=== PATIENT | male | born 1975 | race Caucasian/White ===

== ENCOUNTER 2020-08-26 11:55 | Emergency (ER) | payer MEDICAID, SELFPAY ==
[2020-08-26 12:06] VITALS: BP 108/71; PULSE 86; RESP 14; TEMP 36.7; O2SAT 96; BMI 33.6
--- NOTE | 2020-08-26 12:24 | ED.BACK ---
HPI - Back Pain/Injury General Chief Complaint: Back Pain/Injury Stated Complaint: low back pain Time Seen by Provider: 08/26/20 12:23 History of Present Illness HPI Narrative: Patient woke 3 days ago with right-sided low back pain radiating with tingling to his right foot, the tingling is only when he bends forward, pain is worse with bending, he is not sure if there was any specific injury but he did do some lifting at work the day before There is no weakness no incontinence, no fever no other complaints Related Data Previous Rx's Medication Instructions Recorded cyclobenzaprine 5 mg PO TID PRN #14 tab 08/26/20 naproxen [Naprosyn] 500 mg PO BID PRN #14 tab 08/26/20 prednisone 60 mg PO DAILY 3 Days #9 tab 08/26/20 Allergies Allergy/AdvReac Type Severity Reaction Status Date / Time No Known Allergies Allergy Unverified 07/14/20 16:26 Review of Systems Review of Systems: There is radiation of the pain to the right foot, there is no numbness no weakness no paresthesias no burning with urination no change of bowel or bladder no incontinence, no fever no chills no chest pain no abdominal pain no skin rash PMFSH Past Medical History Source: nursing notes reviewed Medical History (Updated 08/26/20 @ 12:44 by GENO So) No known health problems Social History Social History Advance Directives: No Advance Directives Information Provided: No Physical Exam Vital Signs: Vital Signs: Vital Signs Temp Pulse Resp BP Pulse Ox 08/26/20 12:06 98.0 F 86 14 108/71 96 Body Mass Index 33.6 Patient is well-appearing in no distress, A&O x3 The neck is supple with full range of motion Respiratory there is no respiratory distress Abdomen is soft and nontender The back has right lower lumbar paraspinal tenderness, there is no midline tenderness there is no CVA tenderness, the skin of the back is normal in appearance with no redness or warmth or wound The skin is normal no rashes Neuro is motor is 5/5 x4, the gait is normal, sensation is intact, patient is A&O x3 Extremities is full range of motion x4 Discharge Plan Discharge Clinical Impression: Lumbar radiculopathy Patient Disposition: Home, Self-Care Additional Instructions: Follow as needed with primary care doctor We are trying prednisone which is an anti-inflammatory which may help with the pain shooting into your leg Return any time if worse Prescriptions: New prednisone 20 mg tablet 60 mg PO DAILY 3 Days Qty: 9 RF: 0 cyclobenzaprine 5 mg tablet 5 mg PO TID PRN (Reason: muscle spasm) Qty: 14 RF: 0 naproxen [Naprosyn] 500 mg tablet 500 mg PO BID PRN (Reason: pain) Qty: 14 RF: 0
[2020-08-26] MEDS: predniSONE 20 MG TABLET 60 MG PO (12:59)
[2020-08-26] MEDS: Ketorolac Tromethamine 30 MG/ML VIAL IM (13:00)
== END 2020-08-26 13:06 | disposition home or self-care (01) ==
PROVIDERS: Emergency Provider Emergency Medicine
DX: M54.16 Radiculopathy, lumbar region (principal); M54.5 Low back pain; Z79.899 Other long term (current) drug therapy
CPT/HCPCS: 96372; 99283; 99284; J1885

== ENCOUNTER 2023-09-02 10:12 | Outpatient (REF) | payer MEDICAID, SELFPAY ==
[2023-09-02 11:51] LABS: Alanine Aminotransferase 65 U/L (0-40); Albumin Level 4.4 g/dL (3.5-5.0); Alkaline Phosphatase 91 U/L (39-117); Anion Gap 10 (12-20); Aspartate Amino Transferase 50 U/L (5-37); Bilirubin Total 0.6 mg/dL (0.0-1.0); Blood Urea Nitrogen 12 mg/dL (9-16); Calcium 9.4 mg/dL (8.4-10.2); Carbon Dioxide 28 mmol/L (22-29); Chloride 106 mmol/L (96-108); Cholesterol 176 mg/dL (<200); Estimated Glomerular Filt Rate > 60; Glucose Random 101 mg/dL (60-115); HDL Cholesterol 56 mg/dL (>40); LDL Cholesterol Calculated 97 mg/dL (<100); Potassium 4.4 mmol/L (3.3-5.1); Sodium 140 mmol/L (135-145); Total Protein 7.9 g/dL (6.5-8.0); Triglycerides 116 mg/dL (<150)
[2023-09-02 15:45] LABS: CT PCR NOT DETECTED (Not Detect.); NG PCR NOT DETECTED (Not Detect.)
[2023-09-03 13:03] LABS: RPR Rapid Plasma Reagin NON-REACTIVE (NON-REACTIVE)
[2023-09-05 16:12] LABS: HIV RNA PCR Qn Copies Not Detected Copies/mL; HIV RNA PCR Qn Log Copies Not Detected Log cps/mL
== END 2023-09-02 10:13 | disposition home or self-care (01) ==
LOC: HO.HHCL 10:12
PROVIDERS: Visit Provider Nurse Practitioner Family
DX: Z00.00 Encounter for general adult medical examination without abnormal findings (principal); Z11.4 Encounter for screening for human immunodeficiency virus [HIV]; Z11.3 Encounter for screening for infections with a predominantly sexual mode of transmission; Z71.3 Dietary counseling and surveillance
CPT/HCPCS: 0353U; 36415; 80053; 80061; 86592; 87536; 87900

== ENCOUNTER 2023-09-10 12:56 | Outpatient (AMB) | payer MEDICAID, SELFPAY ==
--- NOTE | 2023-09-10 12:57 | A.OFFVIS_ITS ---
Intake Vital Signs 09/10/23 12:59 Height 5 ft 4 in Weight 202 lb BMI 34.7 BP 127/83 Blood Pressure Location Rt brachial Position Sitting Pulse 92 Intake Visit Reasons: 1.5cm mass~ Lt upper back Intake Note: Patient referred by Hillary Erwin CNP for lump on back. Has been present for 2yrs. C/o increasing in size. Noticed discomfort when rubs with seat bealt while driving. Bothersome when leaning against it. 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 He has had this at least 2 years time. His increasing in size, becoming more symptomatic. He wished to have it excised. Patient has no such lesions elsewhere. Chart was reviewed and patient evaluated. [facility] Medical History Depression Anxiety No known health problems Social History (Updated 09/10/23 @ 13:05 by RAPHAEL Johnson) Alcohol intake: current Alcohol intake frequency: a few times a week Alcohol type: hard liquor Patient Tobacco Use Status: Former Tobacco user Quit Date: 2013 Physical Exam Vital Signs: Last Vital Signs Pulse 92 09/10/23 12:59 BP 127/83 09/10/23 12:59 BMI result Body Mass Index 34.7 Back/Spine/Pelvis Other: Approximately 3 x 2 cm left upper back sebaceous cyst. No other gross pathology demonstrated. Office Procedures Excision Details: Risks, benefits, alternatives of excision of left upper back sebaceous cyst r eviewed with the patient and included but not limited to bleeding, infection, recurrence, numbness, pain, scarring, wound dehiscence, seroma formation and the patient wished to proceed. All questions were answered. Consent was signed. After appropriate positioning, patient under 1% lidocaine and Betadine prep and a transverse bi- elliptical incision was made around the sebaceous cyst measurin g approximately 3 x 2 cm. This uneventfully excised and sent to pathology. Wounds id, secured hemostasis, and closed using running subcuticular 3-0 Vicryl suture followed by Steri-Strips and sterile dressing. Patient tolerated procedure well. Procedure code (CPT) selection complete Office Meds lidocaine 1 %-epinephrine 1:100,000 injection solution Performing Provider: Luis Hunt MD [place] [facility] Administered by: Luis Hunt MD on 09/10/23 13:39 Dose Route Admin Location Dispensed Lot Number Expiration Date [facility] Epic [employer] Specialist 10 mL Infiltration 10 mL Assessment & Plan Assessment & Plan (1) Sebaceous cyst: Code(s): L72.3 - Sebaceous cyst Plan: Patient has been given local instructions including shower in 2 days, ice to the area p.r.n., no strenuous activities, and will see me as directed or p.r.n.. Orders: Orders AMB Excision Today L72.3 - Sebaceous cyst Coding Level of Care Code New Pt Level 5 (95488) Diagnoses Sebaceous cyst L72.3
[2023-09-10 12:59] VITALS: BP 127/83; PULSE 92; BMI 34.7
== END 2023-09-10 13:35 | disposition home or self-care (01) ==
PROVIDERS: PCP Nurse Practitioner Family; Referring Provider Nurse Practitioner Family; Visit Provider Surgery
DX: L72.0 Epidermal cyst (principal)
CPT/HCPCS: 11403; 99204

== ENCOUNTER 2023-09-10 12:56 | Outpatient (REF) | payer MEDICAID, SELFPAY | END 2023-09-10 12:57 | disposition home or self-care (01) | LOC: HO.LNP 12:56 | PROVIDERS: PCP Nurse Practitioner Family; Referring Provider Nurse Practitioner Family; Visit Provider Surgery | DX: L72.3 Sebaceous cyst (principal); Z79.899 Other long term (current) drug therapy | CPT/HCPCS: 11403; 88304; 99202 ==

== ENCOUNTER 2023-09-17 09:05 | Outpatient (AMB) | payer MEDICAID, SELFPAY ==
--- NOTE | 2023-09-17 09:07 | A.OFFVIS_ITS ---
Intake Vital Signs 09/17/23 09:13 Height 5 ft 4 in Weight 209 lb BMI 35.9 BP 132/84 Blood Pressure Location Rt brachial Position Sitting Pulse 85 Intake Visit Reasons: s/p exc Lt upper back Intake Note: Patient here s/p Lt upper back cyst exc. Reports incision healing well. Noticed mild itch yesterday. Denies pain, redness, oozing. 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 Pathology is benign. [facility] Medical History Depression Anxiety No known health problems Social History Alcohol intake: current Alcohol intake frequency: a few times a week Alcohol type: hard liquor Patient Tobacco Use Status: Former Tobacco user Quit Date: 2013 Physical Exam Vital Signs: Last Vital Signs Pulse 85 09/17/23 09:13 BP 132/84 09/17/23 09:13 BMI result Body Mass Index 35.9 Back/Spine/Pelvis Other: Back incision clean dry and intact healing well Assessment & Plan Assessment & Plan (1) Sebaceous cyst: Code(s): L72.3 - Sebaceous cyst Plan Patient has been given local instructions, and will follow-up p.r.n. Coding Level of Care Code Global (05943) Diagnoses Sebaceous cyst L72.3
[2023-09-17 09:13] VITALS: BP 132/84; PULSE 85; BMI 35.9
== END 2023-09-17 09:21 | disposition home or self-care (01) ==
PROVIDERS: PCP Nurse Practitioner Family; Visit Provider Surgery
DX: L72.3 Sebaceous cyst (principal)
CPT/HCPCS: 99024

== ENCOUNTER → 2023-09-17 09:05 | Outpatient (BNVA) | payer MEDICAID, SELFPAY | PROVIDERS: PCP Nurse Practitioner Family; Visit Provider Surgery ==

== ENCOUNTER 2023-10-08 09:24 | Outpatient (AMB) | payer MEDICAID, SELFPAY ==
[2023-10-08 09:27] VITALS: BP 115/76; PULSE 86; BMI 34.0
--- NOTE | 2023-10-08 09:27 | A.OFFVIS_ITS ---
Intake Vital Signs 10/08/23 09:27 Height 5 ft 4 in Weight 198 lb BMI 34.0 BP 115/76 Blood Pressure Location Lt brachial Position Sitting Pulse 86 Intake Visit Reasons: Colonoscopy Screening Intake Note: New consult for pre colonoscopy screening. Patient denies any GI issues. 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 He has a good appetite No known family history of GI cancer No nausea, vomiting, hematemesis, hematochezia abdominal pain fever or chills PFSH Medical History (Updated 10/08/23 @ 10:38 by April Osorio PA-C) Depression Anxiety No known health problems Surgical History (Updated 10/08/23 @ 09:35 by April Osorio PA-C) H/O cystoscopy Social History (Updated 10/08/23 @ 10:36 by April Osoiro PA-C) Household Members Other:: adult child Alcohol intake: current Alcohol intake frequency: a few times a week Alcohol type: hard liquor Patient Tobacco Use Status: Former Tobacco user Quit Date: 2013 Current occupational status: employed Current occupation: [employer] Review of Systems Const All systems reviewed & are unremarkable except as noted in HPI and below Card Denies chest pain, Denies dyspnea and Denies dyspnea on exertion Resp Denies dyspnea and Denies dyspnea on exertion GI Denies abdominal pain, Denies hematochezia, Denies change in bowel habits, Denies heartburn, Denies nausea and Denies vomiting Physical Exam Vital Signs: Last Vital Signs Pulse 86 10/08/23 09:27 BP 115/76 10/08/23 09:27 BMI result Body Mass Index 34.0 Const General: cooperative, healthy appearing, comfortable and no acute distress Orientation/consciousness: patient oriented x3 Limitations: no limitations Eyes Sclerae: sclerae normal Resp Effort & Inspection: normal respiratory effort and able to speak in complete sentences Auscultation: clear to auscultation bilaterally, no rales, no rhonchi and no wheezes Cardio Rate: regular rate Rhythm: regular rhythm Heart sounds: S1 normal heart sound present and S2 normal heart sound present GI Palpation (GI): Soft to palpation and nontender Auscultation: normal bowel sounds Skin General skin exam: no rashes or lesions noted Neuro General: patient oriented x3 Extrem General: Yes full ROM Psych Appearance: grossly normal and well kempt Mental Status: mental status grossly normal Speech and movement: Normal speech and movement present Affect: normal affect Attitude: cooperative Thought process: Normal thought process present Thought content: Normal thought content present Insight: Good insight present (Psych) Judgement: Good judgement present (Psych) Assessment & Plan Assessment & Plan (1) Encounter for screening colonoscopy: Comment: No GI or general complaints-reviewed procedure, rare risk need for escort Code(s): Z12.11 - Encounter for screening for malignant neoplasm of colon Plan: Index screening colonoscopy Plan index screening- MG prep Orders: Orders Colonoscopy - GI Use Only Today Z12.11 - Encounter for screening for malignant neoplasm of colon Medications: New bisacodyl (Dulcolax (bisacodyl)) Day before procedure, prep day Take 4 tablets by mouth upon awakening followed by large glass of water 20 mg (4 x 5 mg) PO ONCE 4 tabs 0RF colonoscopy prep 1 day Z12.11 - Encounter for screening for malignant neoplasm of colon polyethylene glycol 3350 (Miralax) Take as directed by mouth the day before your procedure. 238 grams PO ONCE 238 grams 0RF laxative effect 1 day Patient Instructions: Pleasant for healthy 48-year-old male referred for Index screening colonoscopy MiraLax Gatorade prep-reviewed literature given Encouraged to call with questions or concerns Coding Level of Care Code New Pt Level 3 (73562) Diagnoses Encounter for screening colonoscopy Z12.11 Time Spent (min) 30
== END 2023-10-08 09:58 | disposition home or self-care (01) ==
PROVIDERS: PCP Nurse Practitioner Family; Visit Provider Physician Assistant
DX: Z01.818 Encounter for other preprocedural examination (principal); Z12.11 Encounter for screening for malignant neoplasm of colon
CPT/HCPCS: 99202

== ENCOUNTER → 2023-10-08 09:24 | Outpatient (BNVA) | payer MEDICAID, SELFPAY | PROVIDERS: PCP Nurse Practitioner Family; Visit Provider Physician Assistant | DX: Z12.11 Encounter for screening for malignant neoplasm of colon (principal) | CPT/HCPCS: 99212 ==

== ENCOUNTER 2024-01-31 15:41 | Outpatient (REF) | payer MEDICAID, SELFPAY ==
[2024-01-31 17:54] LABS: Alanine Aminotransferase 55 U/L (0-40); Albumin Level 4.4 g/dL (3.5-5.0); Alkaline Phosphatase 95 U/L (39-117); Aspartate Amino Transferase 37 U/L (5-37); Bilirubin Direct 0.2 mg/dL (0.0-0.5); Bilirubin Total 0.6 mg/dL (0.0-1.0); Total Protein 8.2 g/dL (6.5-8.0)
[2024-02-04 16:03] LABS: HCV Log PCR <1.18 NOT DETECTED Log IU/mL (NOT DETECTED); HepC Viral Load <15 NOT DETECTED IU/mL (NOT DETECTED)
== END 2024-01-31 15:42 | disposition home or self-care (01) ==
LOC: HO.HHCL 15:41
PROVIDERS: Visit Provider Nurse Practitioner Family
DX: B18.2 Chronic viral hepatitis C (principal)
CPT/HCPCS: 36415; 80076; 87522

== ENCOUNTER 2024-03-02 08:41 | Day surgery (SDC) | payer OTHER, SELFPAY ==
--- NOTE | 2024-02-28 12:22 | HO.ANESPROP2 ---
Documented by User: Kim Abebe NP 02/28/24 12:22 HPI - Anesthesia Eval Consult details Narrative: 48yo M for Colonoscopy [facility] Active Problems Active Problems: All Active Problems Encounter for screening colonoscopy (Acute) Sebaceous cyst (Acute) Past Medical History Medical History (Updated 10/08/23 @ 10:38 by April Osorio PA-C) Depression Anxiety No known health problems Surgical History Surgical History (Updated 10/08/23 @ 09:35 by April Osorio PA-C) H/O cystoscopy Social History Social History (Updated 10/08/23 @ 10:36 by April Osorio PA-C) Household Members Other:: adult child Alcohol intake: current Alcohol intake frequency: a few times a week Alcohol type: hard liquor Patient Tobacco Use Status: Former Tobacco user Quit Date: 2013 Are you DNR?: No Advance Directives: No Advance Directives Information Provided: Yes Nutrition Risks: No Nutritional Risk Current occupational status: employed Current occupation: [employer] Allergies Allergy/AdvReac Type Severity Reaction Status Date / Time No Known Allergies Allergy Verified 10/08/23 09:27 Home Medications ?Medication ?Instructions ?Recorded ?Confirmed ?Last Taken ?Type amitriptyline 25 mg tablet 25 mg PO BEDTIME 09/10/23 Unknown History Assessment and Plan Assessment Anesthesia Assessment: Chart Reviewed Documented by User: Piper Cheng MD 03/02/24 09:46 [facility] Past Medical History Medical History (Updated 10/08/23 @ 10:38 by April Osorio PA-C) Depression Anxiety No known health problems Family History Family history of problems with anesthesia: No Surgical History Surgical History (Updated 10/08/23 @ 09:35 by April Osorio PA-C) H/O cystoscopy History of Problems with Anesthesia: No Social History Social History (Updated 10/08/23 @ 10:36 by April Osorio PA-C) Household Members Other:: adult child Alcohol intake: current Alcohol intake frequency: a few times a week Alcohol type: hard liquor Patient Tobacco Use Status: Former Tobacco user Quit Date: 2013 Are you DNR?: No Advance Directives: No Advance Directives Information Provided: Yes Nutrition Risks: No Nutritional Risk Current occupational status: employed Current occupation: [employer] Allergies Allergy/AdvReac Type Severity Reaction Status Date / Time No Known Allergies Allergy Verified 10/08/23 09:27 Home Medications ?Medication ?Instructions ?Recorded ?Confirmed ?Last Taken ?Type amitriptyline 25 mg tablet 25 mg PO BEDTIME 09/10/23 Unknown History Exam Airway Mallampati Class: II TM Dist: >3cm Neck ROM: Full Partial: Upper Heart: rrr Lungs: cta Assessment and Plan Assessment Anesthesia Assessment: Anesthesia Plan Discussed Final Anesthetic Review Family History of Problems with Anesthesia: No History of Problems with Anesthesia: No NPO: Yes ASA Class: II Final Preanesthetic Review: No Changes in Pt Med Stat, Meds/Allgs Chart Reviewed and Consent Obtained/Reviewed Patient Risk: Low Procedure Risk: Low Anesthetic Plan Anesthetic Plan: MAC: Disposition: Standard PACU
[2024-03-02 09:40] VITALS: BMI 34.0
[2024-03-02] MEDS: Lactated Ringers 1,000 ML 100 ML IVCONT (09:45)
--- NOTE | 2024-03-02 09:46 | MHC.SHP ---
Pre-Procedural Eval Section A - 24 Hr Update-Section A only Date of Service: 03/02/24 The patient is an INPATIENT: No The patient has been examined within 24 hours of the surgical procedure. The History & Physical has been completed within 30 days and I have reviewed it.: No Section B - Complete if H&P > 30 days Chief Complaint: Colon cancer screening Relevant Family History (Specify if Yes): No Relevant Social History: Tobacco Use (Former smoker) Present Medications: see Short Stay Collaborative assessment Medical History: Significant History (Depression Anxiety) History of Previous Operations: Relevant previous surgery/procedure and date(s) (History of cystoscopy) Allergies: Allergies Allergy/AdvReac Type Severity Reaction Status Date / Time No Known Allergies Allergy Verified 10/08/23 09:27 Review of Systems Sugical H&P ROS: Negative: Constitution, Cardiovascular, Respiratory and Gastrointestinal Exam Surgical H&P Exam: Normal: Heart, Normal: Lungs, Normal: Extremities and Normal: Abdomen Plan Diagnosis/Plan: Unchanged I have reviewed the history and physical and performed a pertinent physical examination on my patient. No changes have occurred unless specified. Time Spent With Patient Time: Total time managing care of this patient today ____ minutes.
[2024-03-02 09:50] VITALS: BP 123/81; PULSE 85; RESP 18; TEMP 36.9; O2SAT 97
--- NOTE | 2024-03-02 10:26 | HO.OPN-COLON ---
Colonoscopy Operative Note Operative Note Date of Service: 03/02/24 Narrative: COLONOSCOPY TILL CECUM WITH BIOPSIES AND SNARE POLYPECTOMY Pre-op diagnosis: Colon cancer screening (first colonoscopy). Post-op diagnosis:? Colon polyps, prominent ileocecal valve, diverticulosis, hemorrhoids Endoscopist:Mera Baeza MD Anesthesia:?MAC Consent: Indications for the procedure and potential complications of bleeding, perforation, reaction to medications and missed diagnosis were discussed with the patient and informed consent was obtained. Instrument: Olympus PCF H 190 L variable stiffness pediatric colonoscope Monitoring: Vital signs and clinical assessment, intermittent blood pressure monitoring, continuous EKG monitoring, Pulse oximetry and Carbon Dioxide monitoring were done throughout the procedure. Please see anesthesia flowsheet. Colon withdrawl time was 24 minutes. Procedure: The patient was placed in the left lateral decubitis position and pre-procedure medications were administered. After a digital rectal examination of the ano-rectum, the video colonoscope was inserted into the rectum and advanced through the colon to the cecum. The colonoscope was slowly withdrawn in a retrograde panoramic fashion and the colon mucosa was carefully examined including a retroflexed view of the rectum. Findings and interventions are described below. Procedure Difficulty: without difficulty Findings: Terminal Ileum: Not evaluated Cecum: Posterior lip of ICV valve appeared prominent with ? adenomatous change - multiple biopsies were obtained. (biopsies showed Active ileitis with mild activity). Ascending Colon: A 3-4 mm diminutive appearing polyps in the proximal AC - removed with a cold biopsy Transverse Colon: Normal Descending Colon: Moderate diverticulosis Sigmoid Colon: A 10 mm sessile polyp - removed with a cold snare. Moderate diverticulosis Rectum: Normal Ano-rectum: Moderate internal hemorrhoids Colon preparation: Good after some irrigation. [place] Bowel Preparation Scale Right colon; 2 Transverse colon: 2 Left colon; 2 (0 = Unprepared colon segment with mucosa not seen due to solid stool that cannot be cleared. 1 = Portion of mucosa of the colon segment seen, but other areas of the colon segment not well seen due to staining, residual stool and/or opaque liquid. 2 = Minor amount of residual staining, small fragments of stool and/or opaque liquid, but mucosa of colon segment seen well. 3 = Entire mucosa of colon segment seen well with no residual staining, small fragments of stool or opaque liquid) Impression and Post Procedure Diagnosis: Colonoscopy Findings: One small and one medium sized polyps were removed Moderate diverticulosis seen in the left colon Moderate hemorrhoids on retroflexed exam. Plan: I will send a letter with biopsy results Repeat Colonoscopy in 3 years if polyps are adenomatous and 10 year if polyps are hyperplastic. Above findings were reviewed with the patient and relevant handouts were given and the discharge area. BIOPSIES SHOWED: A. Colon, ascending, polypectomy: Tubular adenoma; negative for high-grade dysplasia. B. Ileocecal valve, biopsy: Active ileitis with mild activity (see comment). C. Colon, sigmoid, polypectomy: Tubular adenoma; negative for high-grade dysplasia. COMMENT (B): Neither chronic mucosal injury nor granulomas are seen. The differential diagnosis includes drug/medication effect (e.g. NSAID), infection and early idiopathic inflammatory bowel disease
[2024-03-02 11:09] VITALS: BP 104/71; PULSE 90; RESP 16; TEMP 36.1; O2SAT 94
[2024-03-02 11:24] VITALS: BP 116/76; PULSE 77; RESP 17; O2SAT 96
[2024-03-02 11:31] VITALS: BP 108/74; PULSE 68; RESP 16; TEMP 36.1; O2SAT 96
== END 2024-03-02 12:00 | disposition home or self-care (01) ==
PROVIDERS: PCP Nurse Practitioner Family; Visit Provider Internal Medicine Gastroenterology
PROC: 0DJD8ZZ Inspection of Lower Intestinal Tract, Via Natural or Artificial Opening Endoscopic (ICD-10-PCS; CPT 45378; principal; 2024-03-02 11:00)
DX: Z12.11 Encounter for screening for malignant neoplasm of colon (principal); K52.9 Noninfective gastroenteritis and colitis, unspecified; D12.2 Benign neoplasm of ascending colon; D12.5 Benign neoplasm of sigmoid colon; K57.30 Diverticulosis of large intestine without perforation or abscess without bleeding; K64.8 Other hemorrhoids
CPT/HCPCS: 45385; 45380; 88305; J2704

== ENCOUNTER → 2024-03-02 08:41 | Outpatient (BNV) | payer OTHER, SELFPAY | PROVIDERS: PCP Nurse Practitioner Family; Visit Provider Internal Medicine Gastroenterology | DX: Z12.11 Encounter for screening for malignant neoplasm of colon (principal); K57.90 Diverticulosis of intestine, part unspecified, without perforation or abscess without bleeding; D12.2 Benign neoplasm of ascending colon; D12.5 Benign neoplasm of sigmoid colon; K52.9 Noninfective gastroenteritis and colitis, unspecified | CPT/HCPCS: 45380; 45385 ==

== ENCOUNTER 2024-03-15 18:59 | Emergency (ER) | payer OTHER, SELFPAY ==
--- NOTE | ~2024-03-15 | XR_ITS ---
EXAMINATION: XR HAND, RIGHT CLINICAL INFORMATION: PET laceration COMPARISON: None available. TECHNIQUE: PA, lateral, and oblique views of the right hand. FINDINGS: There is disruption of the soft tissues overlying the distal pinky. The bones and soft tissues are otherwise normal. No fracture. Alignment is anatomic. Joint spaces are maintained. No erosions or soft tissue calcifications. No radiopaque foreign body seen. XR/XR hand RT 2V IMPRESSION: Soft tissue injury of the distal pinky. No fracture or radiopaque foreign body.
[2024-03-15 19:25] VITALS: BP 112/79; PULSE 102; RESP 20; TEMP 37.2; O2SAT 98; BMI 34.7
[2024-03-16] MEDS: Lidocaine HCl 1 % MPF 5 ML VIAL SUBCUT (02:51)
--- NOTE | 2024-03-16 03:10 | ED.WOUNDLAC ---
HPI - Wound/Laceration General Chief Complaint: Wound/Laceration Stated Complaint: Finger lac Time Seen by Provider: 03/16/24 02:23 History of Present Illness HPI narrative: Patient is a 48-year-old male was helping his brother with a boat subsequently accidentally hurt his right dominant hand pinky. The wound is over the distal tip of the finger beyond the distal IP joint. Sensation grossly intact. Patient from home. No fever no chills. No head injury. Patient claims his tetanus status is up-to-date. Related Data Home Medications ?Medication ?Instructions ?Recorded ?Confirmed amitriptyline 25 mg tablet 25 mg PO BEDTIME 09/10/23 03/02/24 Previous Rx's ?Medication ?Instructions ?Recorded naproxen 500 mg tablet (Naprosyn) 500 mg PO BID PRN pain #14 tabs 08/26/20 cephalexin 500 mg capsule 500 mg PO Q8H 5 days #15 caps 03/16/24 ibuprofen 400 mg tablet 400 mg PO Q6H PRN pain #20 tabs 03/16/24 Allergies Allergy/AdvReac Type Severity Reaction Status Date / Time No Known Allergies Allergy Verified 03/15/24 19:29 Review of Systems Review of Systems: No fever no chills. No systemic complaints Yes all other systems are reviewed and are negative FOR[facility]LY [facility] Past Medical History Attestation statement: The following information was validated with the patient. Medical History Depression Anxiety No known health problems Surgical History H/O cystoscopy Social History Social History Household Members Other:: adult child Alcohol intake: current Alcohol intake frequency: a few times a week Alcohol type: hard liquor Patient Tobacco Use Status: Former Tobacco user Quit Date: 2013 Advance Directives: No Advance Directives Information Provided: Yes Do you have a plan to hurt others: No Plan Current occupational status: employed Current occupation: [employer] Physical Exam Vital Signs: Vital Signs: Last Vital Signs Temp 98.9 F 03/15/24 19:25 Pulse 102 H 03/15/24 19:25 Resp 20 03/15/24 19:25 BP 112/79 03/15/24 19:25 Pulse Ox 98 03/15/24 19:25 O2 Del Method Room Air 03/15/24 19:25 BMI result Body Mass Index 34.7 Appearance: Alert. Oriented X3. No acute distress. Eyes: Pupils equal, round and reactive to light. ENT: Pharynx normal. Neck: Normal inspection. Neck supple. No lymph nodes noted. No crepitus CVS: Normal heart rate and rhythm. Pulses normal. Normal S1 and S2 Respiratory: No respiratory distress. Breath sounds normal. No Wheezing. No rales Abdomen: Soft and nontender. No rigidity. No distention. good BS x4 Skin: Skin warm and dry. Normal skin color. Normal skin turgor. Extremities: No lower extremity edema. Neurovascular intact to all extremities. Positive laceration to the tip of right pinky. The distal IP and the proximal IP joints are intact for flexion and extension. The laceration is through the nail bed on the lateral aspect. Sensation grossly intact capillary refill less than 2 seconds Neuro: Oriented X 3. No motor deficit. No sensory deficit. Moving all extermities. No slurred speech Medications Administered Discontinued Medications Generic Name Dose Route Start Last Admin Trade Name Freq PRN Reason Stop Dose Admin Lidocaine HCl 5 ml 03/16/24 02:48 03/16/24 02:51 Lidocaine Hcl 1 % Mpf 5 Ml Vial SUBCUT 03/16/24 02:49 5 ml ONCE ONE Administration Medical Decision Making Medical Decision Making [facility] Narrative: X-ray showed no acute fracture. Patient's hand was cleaned copiously multiple times. Irrigated with normal saline to the wound. A metacarpal block was applied. Subsequently the wound was cleaned and closed. No complication. Patient to come back in approximately 10-12 days for suture removal Differential Diagnosis Differential Diagnoses: The differential diagnosis associated with the presentation includes Fracture, laceration, tendon injury Independent Interpretation I performed an independent interpretation of an: Plain X-Ray (X-ray of the fingers with negative) Radiology Impression Discussion of test interpretation with radiology: I have reviewed the radiologist's reading. Prescription Management Script for pain an antibiotic was given as it was a very dirty wound. Procedures Laceration Right pinky: Side (If applicable): right (Pinky) Size (cm): 3 Description: irregular and other (Involves the nail bed) Depth: simple, single layer Local Anesthetic: other anesthetic (1% lidocaine was used. A metacarpal block was applied. Good anesthesia was achieved.) Amount of anesthesia used (mL): 3 Pre-repair: wound explored Skin layer closed with: other (Prolene) Size (cm): 5-0 Number of sutures: 5 Technique: simple, interrupted Technique: simple, interrupted Discharge Plan Discharge Clinical Impression: Laceration Patient Disposition: Home, Self-Care Instructions: Finger Laceration (ED) Additional Instructions: Keep the area clean. Suture removal in about 10-12 days. Prescriptions: New cephalexin 500 mg capsule 500 mg PO Q8H 5 Days Qty: 15 0RF ibuprofen 400 mg tablet 400 mg PO Q6H PRN (Reason: pain) Qty: 20 0RF No Action naproxen [Naprosyn] 500 mg tablet 500 mg PO BID PRN (Reason: pain) Qty: 14 0RF amitriptyline 25 mg tablet 25 mg PO BEDTIME Referrals: VasquezKaycee kern MD [Emergency Provider] - (Suture removal in the emergency department approximately 10-12 days) Print Language: Ukrainian
[2024-03-16] MEDS: cephALEXin 500 MG CAPSULE PO (04:00)
[2024-03-16 04:03] VITALS: BP 134/78; PULSE 90; RESP 18; TEMP 36.7; O2SAT 97
== END 2024-03-16 04:04 | disposition home or self-care (01) ==
PROVIDERS: Emergency Provider Emergency Medicine Emergency Medical Services; PCP Nurse Practitioner Family
DX: S61.316A Laceration without foreign body of right little finger with damage to nail, initial encounter (principal); W23.1XXA Caught, crushed, jammed, or pinched between stationary objects, initial encounter; Y93.19 Activity, other involving water and watercraft; Y92.9 Unspecified place or not applicable; Y99.9 Unspecified external cause status
CPT/HCPCS: 12002; 73120; 99283; 99284

== ENCOUNTER 2024-09-04 14:12 | Outpatient (REF) | payer OTHER, SELFPAY ==
[2024-09-04 16:08] LABS: Appearance Urine Turbid; Color Urine Yellow; Glucose Urine UA Negative (Negative); Leukocyte Esterase Urine Negative (Negative); Nitrite Urine Negative (Negative); PH 5.5 (5.0-9.0); Specific Gravity - Urine 1.025 (1.005-1.025); Urine Blood Negative (Negative); Urine Ketones Trace mg/dL (Negative); Urine Protein Negative (Neg-Trace)
[2024-09-04 16:39] LABS: Estimated Average Glucose 117 mg/dL; Hemoglobin A1C 156.1697 umol/L; Hemoglobin A1c % 5.7 % (<6.0); Total Hemoglobin (HGBA1C) 3995.9804 umol/L
[2024-09-04 17:05] LABS: Alanine Aminotransferase 48 U/L (0-40); Albumin Level 4.6 g/dL (3.5-5.0); Alkaline Phosphatase 74 U/L (39-117); Anion Gap 13 (12-20); Aspartate Amino Transferase 36 U/L (5-37); Bilirubin Total 0.7 mg/dL (0.0-1.0); Blood Urea Nitrogen 14 mg/dL (9-16); Calcium 10.2 mg/dL (8.4-10.2); Carbon Dioxide 27 mmol/L (22-29); Chloride 105 mmol/L (96-108); Cholesterol 185 mg/dL (<200); Estimated Glomerular Filt Rate > 60; Glucose Random 81 mg/dL (60-115); HDL Cholesterol 52 mg/dL (>40); LDL Cholesterol Calculated 119 mg/dL (<100); Potassium 3.9 mmol/L (3.3-5.1); Sodium 141 mmol/L (135-145); Triglycerides 70 mg/dL (<150)
[2024-09-04 17:25] LABS: Prostate Specific Antigen Scr 0.83 ng/mL (<0.05-4.0)
[2024-09-05 04:26] LABS: HBc Num1 7.02 S/CO (0.00-0.79); HBsAGNum1 0.37 S/CO (0.00-0.99); HIV AB/AG Nonreactive (Nonreactive); HIV Num 1 0.05 S/CO (0.00-0.99); Hepatitis A Antibody IgM 0.58 Index (0-0.79); Hepatitis B Surface Antigen Negative (Negative); ~HepC Num1 9.73 S/CO (0.00-0.79); ~Hepatitis A Antibody IgM Nonreactive (Nonreactive); ~Hepatitis B Surface Antibody REACTIVE (Nonreactive); ~Hepatitis C Antibody Reactive (Nonreactive)
[2024-09-05 05:09] LABS: HBc Num2 7.18 S/CO
[2024-09-05 05:10] LABS: HBc Num3 7.31 S/CO; Hepatitis B Core Antibody Reactive (Nonreactive)
[2024-09-05 05:18] LABS: CT PCR NOT DETECTED (Not Detect.); NG PCR NOT DETECTED (Not Detect.)
== END 2024-09-04 14:13 | disposition home or self-care (01) ==
LOC: HO.HHCL 14:12
PROVIDERS: Visit Provider Nurse Practitioner Family
DX: Z00.00 Encounter for general adult medical examination without abnormal findings (principal); Z11.4 Encounter for screening for human immunodeficiency virus [HIV]; R39.15 Urgency of urination; E66.09 Other obesity due to excess calories
CPT/HCPCS: 36415; 80053; 80061; 81003; 83036; 84153; 86704; 86706; 86709; 86803; 87340; 87389; 87491; 87591